=== PATIENT | female | born 2000 ===

== ENCOUNTER 2021-04-08 09:43 | Inpatient (IN) | payer SELFPAY ==
[2021-04-08] MEDS ORDERED: SODIUM CHLORIDE 0.9% 500 ML 500 ML IV NR (09:52)
--- NOTE | 2021-04-08 09:55 | Emergency Department Report ---
ED General Adult HPI - General Chief complaint: Seizure Stated complaint: SEIZURE Time Seen by Provider: 04/08/21 09:47 Source: patient, family, EMS (Verbal report received from emergency medical services. EMS documentation not available at time of chart dictation ), RN notes reviewed Mode of arrival: Stretcher Limitations: Altered Mental Status, Physical Limitation - History of Present Illness Initial comments: This patient is a 20-year-old female. She is not known to myself previously. She reportedly has a history of lupus, and she is currently maintained on hydroxychloroquine, and steroids. She was previously seen at [facility]. She is brought to the hospital today by emergency medical services with an EMS articulated complaint of new onset seizure and convulsion. EMS reports normal Accu-Chek in the field, normal vital signs in the field, with the exception of tachycardia. They report that the patient had a convulsive events, while laying down, without associated trauma, which lasted for a few seconds to a few minutes, they are not certain. They then gave the patient Versed, after second convulsive event, which terminated her convulsion. In the emergency room, initially, the patient is postictal, confused, moving 4 extremities purposefully. Her mental status improved. The patient now denies headache, neck pain, chest pain, abdominal pain, shortness of breath. She denies urinary symptoms. She endorses physical body pain, myalgias. She is COVID-19 vaccinated. She does endorse that a few weeks ago, she had left-sided weakness. This is also resolved at this time. The patient feels like she is back to her baseline. She further reports that she has not taken Tylenol recently that she is aware of. The patient furthermore states that she has not delivered her given in the past 6 weeks. -: Sudden Severity scale (0 -10): 0 Consistency: intermittent Improves with: medication (Versed in the field) Worsens with: none - Related Data Home Medications Medication Instructions Recorded Confirmed Last Taken Ascorbic Acid [Vitamin C] 500 mg PO DAILY 04/08/21 04/08/21 Unknown Gabapentin 100 mg PO QHS 04/08/21 04/08/21 Unknown Iron [Iron 18 MG TAB] 325 mg PO DAILY 04/08/21 04/08/21 Unknown Meclizine [Antivert] 25 mg PO TID PRN 04/08/21 04/08/21 Unknown Metoprolol Tartrate 25 mg PO BID 04/08/21 04/08/21 Unknown Omeprazole 20 mg PO DAILY 04/08/21 04/08/21 Unknown Ondansetron HCl [Zofran] 4 mg PO Q8HR PRN 04/08/21 04/08/21 Unknown Plaquenil 200 mg PO BID 04/08/21 04/08/21 Unknown amLODIPine 2.5 mg PO DAILY 04/08/21 04/08/21 Unknown predniSONE 10 mg PO DAILY 04/08/21 04/08/21 Unknown Allergies Allergy/AdvReac Type Severity Reaction Status Date / Time No Known Allergies Allergy Unverified 04/08/21 10:06 ED Review of Systems ROS: Stated complaint: SEIZURE Other details as noted in HPI Constitutional: other (Denies loss of taste and smell). denies: fever Eyes: denies: eye discharge Respiratory: denies: see HPI Cardiovascular: denies: chest pain Gastrointestinal: denies: abdominal pain Genitourinary: denies: dysuria Musculoskeletal: arthralgia, myalgia Neurological: weakness Hematological/Lymphatic: denies: easy bleeding ED Past Medical Hx - Medications Home Medications: Home Medications Medication Instructions Recorded Confirmed Last Taken Type Ascorbic Acid [Vitamin C] 500 mg PO DAILY 04/08/21 04/08/21 Unknown History Gabapentin 100 mg PO QHS 04/08/21 04/08/21 Unknown History Iron [Iron 18 MG TAB] 325 mg PO DAILY 04/08/21 04/08/21 Unknown History Meclizine [Antivert] 25 mg PO TID PRN 04/08/21 04/08/21 Unknown History Metoprolol Tartrate 25 mg PO BID 04/08/21 04/08/21 Unknown History Omeprazole 20 mg PO DAILY 04/08/21 04/08/21 Unknown History Ondansetron HCl [Zofran] 4 mg PO Q8HR PRN 04/08/21 04/08/21 Unknown History Plaquenil 200 mg PO BID 04/08/21 04/08/21 Unknown History amLODIPine 2.5 mg PO DAILY 04/08/21 04/08/21 Unknown History predniSONE 10 mg PO DAILY 04/08/21 04/08/21 Unknown History ED Physical Exam - General Limitations: No Limitations General appearance: alert, anxious - Head Head exam: Present: atraumatic, normocephalic - Eye Eye exam: Present: normal appearance, EOMI. Absent: nystagmus - ENT ENT exam: Present: normal exam, normal orophraynx, mucous membranes moist, normal external ear exam - Neck Neck exam: Present: normal inspection, full ROM. Absent: tenderness, meningismus - Respiratory Respiratory exam: Present: normal lung sounds bilaterally. Absent: respiratory distress, wheezes, rales, rhonchi, stridor, decreased breath sounds - Cardiovascular Cardiovascular Exam: Present: normal rhythm, tachycardia, normal heart sounds. Absent: bradycardia, irregular rhythm, systolic murmur, diastolic murmur, rubs, gallop - GI/Abdominal GI/Abdominal exam: Present: soft. Absent: distended, tenderness, guarding, rebound, rigid, pulsatile mass - Extremities Exam Extremities exam: Present: normal inspection, full ROM, other (2+ pulses noted in the bilateral upper and lower extremities. There is no palpable cord. negative Homans sign. Muscular compartments are soft. The pelvis is stable.). Absent: pedal edema, calf tenderness - Back Exam Back exam: Present: normal inspection, full ROM. Absent: tenderness, CVA t enderness (R), CVA tenderness (L), paraspinal tenderness, vertebral tenderness - Neurological Exam Neurological exam: Present: alert, oriented X3, normal gait, other (No facial droop. Tongue midline. Extraocular movements intact bilaterally. Facial sensation intact to light touch in V1, V2, V3 distribution bilaterally. 5 and a 5 strength in 4 extremities. Sensation intact to light touch in 4 extremities.). Absent: motor sensory deficit - Psychiatric Psychiatric exam: Present: normal affect, normal mood - Skin Skin exam: Present: warm, dry, intact, normal color. Absent: rash ED Course Vital Signs 04/08/21 04/08/21 04/08/21 09:44 09:57 10:01 Temperature Pulse Rate 122 H 116 H 115 H Respiratory 17 19 20 Rate Blood Pressure 132/94 Blood Pressure 142/96 [Left] O2 Sat by Pulse 97 99 99 Oximetry 04/08/21 04/08/21 04/08/21 10:03 10:15 10:31 Temperature 99.6 F Pulse Rate 118 H Respiratory 19 Rate Blood Pressure 132/94 132/94 Blood Pressure [Left] O2 Sat by Pulse 98 100 Oximetry 04/08/21 04/08/21 04/08/21 10:45 11:01 11:15 Temperature Pulse Rate 114 H 106 H 94 H Respiratory 16 16 18 Rate Blood Pressure 138/104 140/101 157/112 Blood Pressure [Left] O2 Sat by Pulse 98 100 100 Oximetry 04/08/21 04/08/21 04/08/21 11:31 11:48 12:01 Temperature Pulse Rate 91 H 108 H 91 H Respiratory 16 15 Rate Blood Pressure 148/107 148/107 159/113 Blood Pressure [Left] O2 Sat by Pulse 100 Oximetry 04/08/21 12:15 Temperature Pulse Rate 98 H Respiratory 12 Rate Blood Pressure 154/108 Blood Pressure [Left] O2 Sat by Pulse Oximetry - Reevaluation(s) Reevaluation #1: 04/08/21 12:33 Differential diagnosis, including but not limited to: Seizure, pneumonia, urinary tract infection, lupus, immune compromise TIA Assessment and plan: 20-year-old female, who was afebrile, with reassuring vital signs, afebrile rectally, with resolving tachycardia, who currently has a GCS of 15, with NIH score of 0, with new onset convulsive event x2, terminated with Versed, and report of left-sided hemiparesis, now resolved. Given improvement in mental status, lack of fever, nuchal rigidity, meningitis, encephalitis, lupus cerebritis very unlikely. Given GCS of 15, with NIH score of 0, subclinical status and/or status epilepticus unlikely. Given current examination, emergent CT angiogram head and neck not indicated. However, given young age, presence of lupus, new onset convulsive event, and articulated history of left-sided hemiparesis, now resolved, have discussed the patient's history, physical, laboratory studies and imaging studies with neurology on-call, Dr. Montesinos. Admission recommended for supportive care, urgent diagnostic work-up. Please see his specific recommendations. Leukocytosis is likely a stress reaction likely secondary to convulsive event. The patient is encephalopathic at this time. However, given her tachycardia, leukocytosis, bacteriuria with pyuria, we will load with fluids, ceftriaxone. Patient to be admitted to the care of the medical service under the hospital physician, Dr. Palmer. We will replete the patient's potassium. ED Medical Decision Making - Lab Data Result diagrams: 04/08/21 10:17 04/08/21 10:17 Vital Signs 04/08/21 04/08/21 04/08/21 09:44 09:57 10:01 Temperature Pulse Rate 122 H 116 H 115 H Respiratory 17 19 20 Rate Blood Pressure 132/94 Blood Pressure 142/96 [Left] O2 Sat by Pulse 97 99 99 Oximetry 04/08/21 04/08/21 04/08/21 10:03 10:15 10:31 Temperature 99.6 F Pulse Rate 118 H Respiratory 19 Rate Blood Pressure 132/94 132/94 Blood Pressure [Left] O2 Sat by Pulse 98 100 Oximetry 04/08/21 04/08/21 04/08/21 10:45 11:01 11:15 Temperature Pulse Rate 114 H 106 H 94 H Respiratory 16 16 18 Rate Blood Pressure 138/104 140/101 157/112 Blood Pressure [Left] O2 Sat by Pulse 98 100 100 Oximetry 04/08/21 04/08/21 04/08/21 11:31 11:48 12:01 Temperature Pulse Rate 91 H 108 H 91 H Respiratory 16 15 Rate Blood Pressure 148/107 148/107 159/113 Blood Pressure [Left] O2 Sat by Pulse 100 Oximetry 04/08/21 12:15 Temperature Pulse Rate 98 H Respiratory 12 Rate Blood Pressure 154/108 Blood Pressure [Left] O2 Sat by Pulse Oximetry Lab Results 04/08/21 04/08/21 04/08/21 Range/Units 10:17 10:17 10:17 WBC 19.6 H (4.5-11.0) K/mm3 RBC 4.49 (3.65-5.03) M/mm3 Hgb 10.4 (10.1-14.3) gm/dl Hct 33.0 (30.3-42.9) % MCV 74 L (79-97) fl MCH 23 L (28-32) pg MCHC 32 (30-34) % RDW 23.4 H (13.2-15.2) % Plt Count 197 (140-440) K/mm3 Lymph % (Auto) 5.3 L (13.4-35.0) % [place] % (Auto) 6.5 (0.0-7.3) % Eos % (Auto) 0.3 (0.0-4.3) % Baso % (Auto) 0.2 (0.0-1.8) % Lymph # (Auto) 1.1 L (1.2-5.4) K/mm3 [place] # (Auto) 1.3 H (0.0-0.8) K/mm3 Eos # (Auto) 0.1 (0.0-0.4) K/mm3 Baso # (Auto) 0.0 (0.0-0.1) K/mm3 Seg Neutrophils % 87.7 H (40.0-70.0) % Seg Neutrophils # 17.6 H (1.8-7.7) K/mm3 PT 13.3 (12.2-14.9) Sec. INR 0.91 (0.87-1.13) Sodium 134 L (137-145) mmol/L Potassium 2.5 L* (3.6-5.0) mmol/L Chloride 90.3 L (98-107) mmol/L Carbon Dioxide 25 (22-30) mmol/L Anion Gap 21 mmol/L BUN 15 (7-17) mg/dL Creatinine 0.5 L (0.6-1.2) mg/dL Estimated GFR > 60 ml/min BUN/Creatinine Ratio 30 % Glucose 99 (65-100) mg/dL Calcium 8.8 (8.4-10.2) mg/dL Magnesium (1.7-2.3) mg/dL Total Bilirubin 0.70 (0.1-1.2) mg/dL AST 26 (5-40) units/L ALT 38 (7-56) units/L Alkaline Phosphatase 135 H (35-129) units/L Total Protein 7.5 (6.3-8.2) g/dL Albumin 3.9 (3.9-5) g/dL Albumin/Globulin Ratio 1.1 % TSH (0.270-4.200) mlU/mL HCG, Quant (0-4) mIU/mL Urine Color (Yellow) Urine Turbidity (Clear) Urine pH (5.0-7.0) Ur Specific [place] (1.003-1.030) Urine Protein (Negative) mg/dL Urine Glucose (UA) (Negative) mg/dL Urine Ketones (Negative) mg/dL Urine Blood (Negative) Urine Nitrite (Negative) Urine Bilirubin (Negative) Urine Urobilinogen (<2.0) mg/dL Ur Leukocyte Esterase (Negative) Urine WBC (Auto) (0.0-6.0) /HPF Urine RBC (Auto) (0.0-6.0) /HPF U Epithel Cells (Auto) (0-13.0) /HPF Urine Bacteria (Auto) (Negative) /HPF Salicylates (2.8-20.0) mg/dL Urine Opiates Screen Urine Methadone Screen Acetaminophen (10.0-30.0) ug/mL Ur Barbiturates Screen Ur Phencyclidine Scrn Ur Amphetamines Screen Urine Cocaine Screen U Marijuana (THC) Screen Plasma/Serum Alcohol (0-0.07) % 04/08/21 04/08/21 04/08/21 Range/Units 10:17 10:17 10:17 WBC (4.5-11.0) K/mm3 RBC (3.65-5.03) M/mm3 Hgb (10.1-14.3) gm/dl Hct (30.3-42.9) % MCV (79-97) fl MCH (28-32) pg MCHC (30-34) % RDW (13.2-15.2) % Plt Count (140-440) K/mm3 Lymph % (Auto) (13.4-35.0) % [place] % (Auto) (0.0-7.3) % Eos % (Auto) (0.0-4.3) % Baso % (Auto) (0.0-1.8) % Lymph # (Auto) (1.2-5.4) K/mm3 [place] # (Auto) (0.0-0.8) K/mm3 Eos # (Auto) (0.0-0.4) K/mm3 Baso # (Auto) (0.0-0.1) K/mm3 Seg Neutrophils % (40.0-70.0) % Seg Neutrophils # (1.8-7.7) K/mm3 PT (12.2-14.9) Sec. INR (0.87-1.13) Sodium (137-145) mmol/L Potassium (3.6-5.0) mmol/L Chloride (98-107) mmol/L Carbon Dioxide (22-30) mmol/L Anion Gap mmol/L BUN (7-17) mg/dL Creatinine (0.6-1.2) mg/dL Estimated GFR ml/min BUN/Creatinine Ratio % Glucose (65-100) mg/dL Calcium (8.4-10.2) mg/dL Magnesium (1.7-2.3) mg/dL Total Bilirubin (0.1-1.2) mg/dL AST (5-40) units/L ALT (7-56) units/L Alkaline Phosphatase (35-129) units/L Total Protein (6.3-8.2) g/dL Albumin (3.9-5) g/dL Albumin/Globulin Ratio % TSH (0.270-4.200) mlU/mL HCG, Quant < 2 (0-4) mIU/mL Urine Color (Yellow) Urine Turbidity (Clear) Urine pH (5.0-7.0) Ur Specific [place] (1.003-1.030) Urine Protein (Negative) mg/dL Urine Glucose (UA) (Negative) mg/dL Urine Ketones (Negative) mg/dL Urine Blood (Negative) Urine Nitrite (Negative) Urine Bilirubin (Negative) Urine Urobilinogen (<2.0) mg/dL Ur Leukocyte Esterase (Negative) Urine WBC (Auto) (0.0-6.0) /HPF Urine RBC (Auto) (0.0-6.0) /HPF U Epithel Cells (Auto) (0-13.0) /HPF Urine Bacteria (Auto) (Negative) /HPF Salicylates < 0.3 L (2.8-20.0) mg/dL Urine Opiates Screen Urine Methadone Screen Acetaminophen 9.5 L (10.0-30.0) ug/mL Ur Barbiturates Screen Ur Phencyclidine Scrn Ur Amphetamines Screen Urine Cocaine Screen U Marijuana (THC) Screen Plasma/Serum Alcohol (0-0.07) % 04/08/21 04/08/21 04/08/21 Range/Units 10:17 10:17 10:47 WBC (4.5-11.0) K/mm3 RBC (3.65-5.03) M/mm3 Hgb (10.1-14.3) gm/dl Hct (30.3-42.9) % MCV (79-97) fl MCH (28-32) pg MCHC (30-34) % RDW (13.2-15.2) % Plt Count (140-440) K/mm3 Lymph % (Auto) (13.4-35.0) % [place] % (Auto) (0.0-7.3) % Eos % (Auto) (0.0-4.3) % Baso % (Auto) (0.0-1.8) % Lymph # (Auto) (1.2-5.4) K/mm3 [place] # (Auto) (0.0-0.8) K/mm3 Eos # (Auto) (0.0-0.4) K/mm3 Baso # (Auto) (0.0-0.1) K/mm3 Seg Neutrophils % (40.0-70.0) % Seg Neutrophils # (1.8-7.7) K/mm3 PT (12.2-14.9) Sec. INR (0.87-1.13) Sodium (137-145) mmol/L Potassium (3.6-5.0) mmol/L Chloride (98-107) mmol/L Carbon Dioxide (22-30) mmol/L Anion Gap mmol/L BUN (7-17) mg/dL Creatinine (0.6-1.2) mg/dL Estimated GFR ml/min BUN/Creatinine Ratio % Glucose (65-100) mg/dL Calcium (8.4-10.2) mg/dL Magnesium 2.20 (1.7-2.3) mg/dL Total Bilirubin (0.1-1.2) mg/dL AST (5-40) units/L ALT (7-56) units/L Alkaline Phosphatase (35-129) units/L Total Protein (6.3-8.2) g/dL Albumin (3.9-5) g/dL Albumin/Globulin Ratio % TSH 1.900 (0.270-4.200) mlU/mL HCG, Quant (0-4) mIU/mL Urine Color (Yellow) Urine Turbidity (Clear) Urine pH (5.0-7.0) Ur Specific [place] (1.003-1.030) Urine Protein (Negative) mg/dL Urine Glucose (UA) (Negative) mg/dL Urine Ketones (Negative) mg/dL Urine Blood (Negative) Urine Nitrite (Negative) Urine Bilirubin (Negative) Urine Urobilinogen (<2.0) mg/dL Ur Leukocyte Esterase (Negative) Urine WBC (Auto) (0.0-6.0) /HPF Urine RBC (Auto) (0.0-6.0) /HPF U Epithel Cells (Auto) (0-13.0) /HPF Urine Bacteria (Auto) (Negative) /HPF Salicylates (2.8-20.0) mg/dL Urine Opiates Screen Urine Methadone Screen Acetaminophen (10.0-30.0) ug/mL Ur Barbiturates Screen Ur Phencyclidine Scrn Ur Amphetamines Screen Urine Cocaine Screen U Marijuana (THC) Screen Plasma/Serum Alcohol < 0.01 (0-0.07) % 04/08/21 04/08/21 Range/Units 11:55 11:55 WBC (4.5-11.0) K/mm3 RBC (3.65-5.03) M/mm3 Hgb (10.1-14.3) gm/dl Hct (30.3-42.9) % MCV (79-97) fl MCH (28-32) pg MCHC (30-34) % RDW (13.2-15.2) % Plt Count (140-440) K/mm3 Lymph % (Auto) (13.4-35.0) % [place] % (Auto) (0.0-7.3) % Eos % (Auto) (0.0-4.3) % Baso % (Auto) (0.0-1.8) % Lymph # (Auto) (1.2-5.4) K/mm3 [place] # (Auto) (0.0-0.8) K/mm3 Eos # (Auto) (0.0-0.4) K/mm3 Baso # (Auto) (0.0-0.1) K/mm3 Seg Neutrophils % (40.0-70.0) % Seg Neutrophils # (1.8-7.7) K/mm3 PT (12.2-14.9) Sec. INR (0.87-1.13) Sodium (137-145) mmol/L Potassium (3.6-5.0) mmol/L Chloride (98-107) mmol/L Carbon Dioxide (22-30) mmol/L Anion Gap mmol/L BUN (7-17) mg/dL Creatinine (0.6-1.2) mg/dL Estimated GFR ml/min BUN/Creatinine Ratio % Glucose (65-100) mg/dL Calcium (8.4-10.2) mg/dL Magnesium (1.7-2.3) mg/dL Total Bilirubin (0.1-1.2) mg/dL AST (5-40) units/L ALT (7-56) units/L Alkaline Phosphatase (35-129) units/L Total Protein (6.3-8.2) g/dL Albumin (3.9-5) g/dL Albumin/Globulin Ratio % TSH (0.270-4.200) mlU/mL HCG, Quant (0-4) mIU/mL Urine Color Straw (Yellow) Urine Turbidity Clear (Clear) Urine pH 7.0 (5.0-7.0) Ur Specific [place] 1.005 (1.003-1.030) Urine Protein 30 mg/dl (Negative) mg/dL Urine Glucose (UA) Neg (Negative) mg/dL Urine Ketones Neg (Negative) mg/dL Urine Blood Sm (Negative) Urine Nitrite Neg (Negative) Urine Bilirubin Neg (Negative) Urine Urobilinogen < 2.0 (<2.0) mg/dL Ur Leukocyte Esterase Mod (Negative) Urine WBC (Auto) 10.0 H (0.0-6.0) /HPF Urine RBC (Auto) 3.0 (0.0-6.0) /HPF U Epithel Cells (Auto) 3.0 (0-13.0) /HPF Urine Bacteria (Auto) 1+ (Negative) /HPF Salicylates (2.8-20.0) mg/dL Urine Opiates Screen Negative Urine Methadone Screen Negative Acetaminophen (10.0-30.0) ug/mL Ur Barbiturates Screen Negative Ur Phencyclidine Scrn Negative Ur Amphetamines Screen Negative Urine Cocaine Screen Negative U Marijuana (THC) Screen Negative Plasma/Serum Alcohol (0-0.07) % - EKG Data -: EKG Interpreted by [place] EKG shows normal: sinus rhythm Rate: tachycardia - EKG Data When compared to previous EKG there are: previous EKG unavailable 04/08/21 12:30 The EKG is interpreted at 10: 24 Sinus rhythm, tachycardia, 123 bpm. Normal axis, normal P wave axis, QTC is 473 ms. There is motion artifact. This is an abnormal EKG. This is not a STEMI. - Radiology Data Radiology results: pending, report reviewed, image reviewed CT head/brain wo con INDICATION / CLINICAL INFORMATION: 20 years Female; Seizure. TECHNIQUE: Routine CT head without contrast. All CT scans at this location are performed using CT dose reduction for ALARA by means of automated exposure control. COMPARISON: None. FINDINGS: BRAIN / INTRACRANIAL CONTENTS: No acute hemorrhage, mass effect, midline shift, hydrocephalus, or acute, large territorial infarct. No signs of significant atrophy or chronic infarct. No significant white matter abnormality seen. CRANIOCERVICAL JUNCTION: No significant abnormality. ORBITS: No significant abnormality of visualized orbits. SINUSES / MASTOIDS: Visualized paranasal sinuses and mastoid air cells are essentially clear. ADDITIONAL FINDINGS: None. IMPRESSION: 1. No focal mass, hemorrhage, hydrocephalus, or acute, large territorial infarct. Signer Name: Taqueria Arzola MD, III Signed: 04/08/2021 9:15 AM Workstation Name: [id number] Critical care attestation.: If time is entered above; I have spent that time in minutes in the direct care of this critically ill patient, excluding procedure time. ED Disposition Clinical Impression: Seizure, Hypokalemia, History of lupus, SIRS (systemic inflammatory response syndrome), Bacteriuria with pyuria Disposition: ADMITTED INPATIENT Is pt being admited?: Yes Does the pt Need Aspirin: No Condition: Good Referrals: PRIMARY CAREMD [Primary Care Provider] - 3-5 Days
--- NOTE | 2021-04-08 10:20 | Cat Scan Report ---
CT head/brain wo con INDICATION / CLINICAL INFORMATION: 20 years Female; Seizure. TECHNIQUE: Routine CT head without contrast. All CT scans at this location are performed using CT dos e reduction for ALARA by means of automated exposure control. COMPARISON: None. FINDINGS: BRAIN / INTRACRANIAL CONTENTS: No acute hemorrhage, mass effect, midline shift, hydrocephalus, or acu te, large territorial infarct. No signs of significant atrophy or chronic infarct. No significant whi te matter abnormality seen. CRANIOCERVICAL JUNCTION: No significant abnormality. ORBITS: No significant abnormality of visualized orbits. SINUSES / MASTOIDS: Visualized paranasal sinuses and mastoid air cells are essentially clear. ADDITIONAL FINDINGS: None. IMPRESSION: 1. No focal mass, hemorrhage, hydrocephalus, or acute, large territorial infarct. Signer Name: Taqueria Arzola MD, III Signed: 04/08/2021 10:15 AM Workstation Name: [id number]
--- NOTE | 2021-04-08 10:23 | Emergency Department Report ---
ED Neuro Deficit HPI - General Chief Complaint: Seizure Stated Complaint: SEIZURE Time Seen by Provider: 04/08/21 09:47 Source: family, EMS Mode of arrival: Wheelchair Limitations: Other - History of Present Illness Initial Comments: [facility] Consult Note # Demographics Consult Type: General Neurology Patient Location: Emergency Room First Name: Chantell Last Name: Jd Date of : 2000 Age: 20 Gender: Female Facility: [facility] Time of Initial Page (Eastern Time): 04/08/2021, 09:55 Time of Return Call (Eastern Time): 04/08/2021, 09:56 Phone Only Consult: Called back to requested number, with Dr. Shook, the ED physician, to discuss the patient's presentation & evaluation options. The patient reportedly was transported by EMS after convulsive episodes x2 this morning, first life episodes. She was given Versed in the field, with post-ictal confusion reported. Currently she was moving extremities x4. Left intermittent episodes of renny-body paralysis also reported over the last few weeks, & he reported possible history of lupus. Agree with admission for further diagnostic work-up & evaluation, including brain MRI with & without contrast, CTA head & neck, EEG (continuous if patient does not return to her cognitive baseline, or has further convulsive events), & lumbar puncture if febrile without identified infectious source. If confusion persists, low clinical threshold to manage for status epilepticus with continuous EEG monitoring. The ED physician was encouraged to call back for any further questions, or with any clinical changes in the patient's neurological status. # HPI Chief Complaint: seizure # Exam Vitals: vital signs reviewed 99.6 SBP: 132 DBP: 94 - Related Data Allergies/Adverse Reactions: Allergies Allergy/AdvReac Type Severity Reaction Status Date / Time No Known Allergies Allergy Unverified 04/08/21 10:06 ED Review of Systems ROS: Stated complaint: SEIZURE Other details as noted in HPI ED Past Medical Hx - Past Medical History Hx Hypertension: Yes Hx Renal Disease: Yes Hx Seizures: Yes Additional medical history: Lupus - Surgical History Past Surgical History?: Yes Additional Surgical History: tonsilectomy ED Neuro Physical Exam - General Limitations: Other Suspected Stroke: No ED Course Vital Signs 04/08/21 04/08/21 04/08/21 09:44 09:57 10:01 Temperature Pulse Rate 122 H 116 H 115 H Respiratory 17 19 20 Rate Blood Pressure 132/94 Blood Pressure 142/96 [Left] O2 Sat by Pulse 97 99 99 Oximetry 04/08/21 10:03 Temperature 99.6 F Pulse Rate Respiratory Rate Blood Pressure Blood Pressure [Left] O2 Sat by Pulse Oximetry Critical care attestation.: If time is entered above; I have spent that time in minutes in the direct care of this critically ill patient, excluding procedure time. ED Disposition Clinical Impression: Seizure Disposition: 09 ADMITTED INPATIENT Is pt being admited?: Yes Condition: Stable
[2021-04-08] MEDS ORDERED: levETIRAcetam 1000 MG/NS 0.75% 1,000 MG/100 ML BAG IV ONE (10:30)
[2021-04-08 10:42] LABS: Hemoglobin 10.4 gm/dl (10.1-14.3); Mean Corpuscular HGB Conc 32 % (30-34); Mean Corpuscular Volume 74 fl (79-97); Platelet Count 197 K/mm3 (140-440); Red Blood Count 4.49 M/mm3 (3.65-5.03)
[2021-04-08 10:54] LABS: INR 0.91 (0.87-1.13)
[2021-04-08 11:03] LABS: Red Cell Distribution Width 23.4 % (13.2-15.2)
[2021-04-08 11:05] LABS: Alanine Aminotransferase 38 units/L (7-56); Albumin 3.9 g/dL (3.9-5); BUN/Creatinine Ratio 30; Blood Urea Nitrogen 15 mg/dL (7-17); Calcium 8.8 mg/dL (8.4-10.2); Hemolysis Index 3
[2021-04-08 11:10] LABS: Basophils % (Auto) 0.2 % (0.0-1.8); Eosinophils # (Auto) 0.1 K/mm3 (0.0-0.4); Eosinophils % (Auto) 0.3 % (0.0-4.3); Lymphocytes # (Auto) 1.1 K/mm3 (1.2-5.4); Lymphocytes % (Auto) 5.3 % (13.4-35.0); Monocytes # (Auto) 1.3 K/mm3 (0.0-0.8); Monocytes % (Auto) 6.5 % (0.0-7.3)
[2021-04-08] MEDS ORDERED: POTASSIUM CHLORIDE ER 20 MEQ TAB PO ONE (11:43)
[2021-04-08 12:20] LABS: Bacteria,Urine 1+ /HPF (Negative); Bilirubin,Urine NEG (Negative); Blood,Urine SM (Negative); Color,Urine Straw (Yellow); Urobilinogen,Urine < 2.0 mg/dL (<2.0)
[2021-04-08] MEDS: POTASSIUM CHLORIDE 10 MEQ 10 MEQ/100 ML BAG IV SCH ×4 (12:21→18:36)
[2021-04-08 12:25] LABS: Amphetamine Screen,Urine Negative; Cannabinoid Screen,Urine Negative; Cocaine Screen,Urine Negative; Methadone Screen,Urine Negative; Opiate Screen,Urine Negative
[2021-04-08] MEDS ORDERED: cefTRIAXone/NS 1 GM/50 ML 1 GM/50 ML BAG IV ONE (12:29)
[2021-04-08 12:44] LABS: Benzodiazepines Screen,Urine Positive
--- NOTE | 2021-04-08 13:19 | XRay Report ---
CHEST 1 VIEW 04/08/2021 12:34 PM INDICATION / CLINICAL INFORMATION: New onset seizures, sepsis. COMPARISON: None available. FINDINGS: SUPPORT DEVICES: None. HEART / MEDIASTINUM: No significant abnormality. LUNGS / PLEURA: No significant pulmonary or pleural abnormality. No pneumothorax. ADDITIONAL FINDINGS: No significant additional findings. IMPRESSION: 1. No acute findings. Signer Name: Raul Montalvo MD Signed: 04/08/2021 1:15 PM Workstation Name: [id number]
[2021-04-08] MEDS ORDERED: SODIUM CHLORIDE 0.9% 1000 ML IV SOLN IV ONE (13:22)
[2021-04-08] MEDS ORDERED: oxyCODONE /ACETAMINOPHEN 5-325MG TAB PO PRN (13:22)
[2021-04-08] MEDS ORDERED: HYDROmorphone 1 MG/1 ML INJ IV PRN ×2 (13:22)
[2021-04-08] MEDS ORDERED: ACETAMINOPHEN 325 MG TAB PO PRN ×2 (13:22)
[2021-04-08] MEDS ORDERED: ONDANSETRON 4 MG/2 ML INJ IV PRN (13:22)
[2021-04-08] MEDS ORDERED: ALBUTEROL 2.5 MG/3 ML NEBU IH PRN (13:22)
[2021-04-08] MEDS ORDERED: MECLIZINE 25 MG TAB PO PRN (13:25)
--- NOTE | 2021-04-08 13:30 | History and Physical Report ---
History of Present Illness Chief complaint: I feel weak History of present illness: 20 YO Female with SLE, HTN, Anemia Chronic Disease, Vertigo presents to ED for evaluation. Patient reports "I feel weak". Patient has diminished cognition with concomitant lethargy and is unable to provide detailed history. Patient history taken from EMS staff ED staff, as well as patient family members were made available by telephone for interview. As per family the patient was found to be confused and weak this morning. EMS was notified and upon arrival the patient was found to be in distress and exhibited seizure-like activity. Patient treated with benzodiazepine therapy and subsequent transported to [facility] for further care and evaluation of the aforementioned symptoms. The patient was seen and evaluated in the emergency department. All lab and imaging studies reviewed. Patient found to have new onset seizure activity, urinary tract infection complicated by sepsis, hypokalemia. Patient admitted to medical floor and initiated on sepsis protocol as well as initiated on antiepileptic therapy. Patient denies fever, chills, chest pain, palpitation, productive cough, skin rash, recent ill contacts, known exposure to COVID-19. No prior admission for review. All medication listed at time of admission has been reconciled. Patient fully vaccinated against COVID-19. Past History Past Medical History: anemia, hypertension, seizures Past Surgical History: No surgical history, Other (Reviewed) Social history: single. denies: smoking, alcohol abuse, prescription drug abuse Family history: hypertension Medications and Allergies Allergies Allergy/AdvReac Type Severity Reaction Status Date / Time No Known Allergies Allergy Unverified 04/08/21 10:06 Home Medications Medication Instructions Recorded Confirmed Last Taken Type Ascorbic Acid [Vitamin C] 500 mg PO DAILY 04/08/21 04/08/21 Unknown History Gabapentin 100 mg PO QHS 04/08/21 04/08/21 Unknown History Iron [Iron 18 MG TAB] 325 mg PO DAILY 04/08/21 04/08/21 Unknown History Meclizine [Antivert] 25 mg PO TID PRN 04/08/21 04/08/21 Unknown History Metoprolol Tartrate 25 mg PO BID 04/08/21 04/08/21 Unknown History Omeprazole 20 mg PO DAILY 04/08/21 04/08/21 Unknown History Ondansetron HCl [Zofran] 4 mg PO Q8HR PRN 04/08/21 04/08/21 Unknown History Plaquenil 200 mg PO BID 04/08/21 04/08/21 Unknown History amLODIPine 2.5 mg PO DAILY 04/08/21 04/08/21 Unknown History predniSONE 10 mg PO DAILY 04/08/21 04/08/21 Unknown History Active Meds: Active Medications Acetaminophen (Acetaminophen 325 Mg Tab) 650 mg PO Q4H PRN PRN Reason: Pain MILD(1-3)/Fever >100.5/GUADALUPE Acetaminophen (Acetaminophen 325 Mg Tab) 650 mg PO Q6H PRN PRN Reason: Pain, Mild (1-3) Albuterol (Albuterol 2.5 Mg/3 Ml Nebu) 2.5 mg IH Q4HRT PRN PRN Reason: Shortness Of Breath Amlodipine Besylate (Amlodipine 5 Mg Tab) 2.5 mg PO DAILY LOLITA Ascorbic Acid (Ascorbic Acid 500 Mg Tab) 500 mg PO DAILY LOLITA Gabapentin (Gabapentin 100 Mg Cap) 100 mg PO QHS LOLITA Hydromorphone HCl (Hydromorphone 1 Mg/1 Ml Inj) 0.25 mg IV Q4H PRN PRN Reason: Pain, Moderate (4-6) Hydromorphone HCl (Hydromorphone 1 Mg/1 Ml Inj) 0.5 mg IV Q23H PRN PRN Reason: Pain , Severe (7-10) Sodium Chloride (Nacl 0.9% 500 Ml) 500 mls @ 999 mls/hr IV BOLUS NR Stop: 04/08/21 20:00 Last Admin: 04/08/21 10:49 Dose: 999 mls/hr Documented by: Potassium Chloride (Kcl 10meq/100ml) 10 meq in 100 mls @ 100 mls/hr IV Q1H LOLITA Stop: 04/08/21 15:59 Last Admin: 04/08/21 12:21 Dose: 100 mls/hr Documented by: Cefepime HCl (Cefepime/Ns 2 Gm/100 Ml) 2 gm in 100 mls @ 200 mls/hr IV Q12H [facility]; Protocol Meclizine HCl (Meclizine 25 Mg Tab) 25 mg PO TID PRN PRN Reason: Vertigo Miscellaneous Medication (Iron [Iron 18 Mg Tab]) 325 mg PO DAILY [facility] Miscellaneous Medication (Metoprolol Tartrate [Metoprolol Tartrate]) 25 mg PO BID LOLITA Miscellaneous Medication (Omeprazole [Omeprazole]) 20 mg PO DAILY [facility] Ondansetron HCl (Ondansetron 4 Mg/2 Ml Inj) 4 mg IV Q8H PRN PRN Reason: Nausea And Vomiting Oxycodone/Acetaminophen (Oxycodone /Acetaminophen 5-325mg Tab) 1 tab PO Q16H PRN PRN Reason: Pain, Moderate (4-6) Sodium Chloride (Sodium Chloride 0.9% 10 Ml Flush Syringe) 10 ml IV BID LOLITA Sodium Chloride (Sodium Chloride 0.9% 10 Ml Flush Syringe) 10 ml IV PRN PRN PRN Reason: LINE FLUSH Sodium Chloride (Sodium Chloride 0.9% 1000 Ml Iv Soln) 1,630 ml 30 ml/kg (1630 ml) IV ONCE ONE Stop: 04/08/21 13:23 Review of Systems Constitutional: no weight loss, no weight gain, no fever, no chills Ears, nose, mouth and throat: no ear pain, no ear discharge, no tinnitis, no nose pain Breasts: no change in shape, no swelling, no mass Cardiovascular: no chest pain, no orthopnea Respiratory: no cough, no cough with sputum, no hemoptysis Gastrointestinal: no abdominal pain, no diarrhea, no hematemesis Genitourinary Female: no pelvic pain, no flank pain, no dysuria Rectal: no pain, no incontinence, no bleeding Musculoskeletal: no neck stiffness, no neck pain, no arm numbness/tingling, no shooting leg pain, no leg numbness/tingling Integumentary: no rash, no redness, no sores, no boils Neurological: no head injury, no paralysis, no parathesias, no tingling Psychiatric: no anxiety, no memory loss, no sleep disturbances, no change in appetite, no change in libido Endocrine: no cold intolerance, no polydipsia, no nocturia, no flushing Allergic/Immunologic: no urticaria, no allergic rhinitis, no wheezing Exam - Constitutional Vitals: Temp Pulse Resp BP Pulse Ox 99.6 F 98 H 12 154/108 100 04/08/21 10:03 04/08/21 12:15 04/08/21 12:15 04/08/21 12:15 04/08/21 11:31 General appearance: Present: mild distress - EENT Eyes: Present: PERRL ENT: hearing intact, clear oral mucosa - Neck Neck: Present: supple, normal ROM - Respiratory Respiratory effort: normal Respiratory: bilateral: CTA - Cardiovascular Heart Sounds: Present: S1 & S2. Absent: rub, click - Extremities Extremities: pulses symmetrical, No edema Peripheral Pulses: abnormal (Capillary refill greater than 3.5 seconds) - Abdominal General gastrointestinal: Present: soft, non-tender, non-distended, normal bowel sounds Female genitourinary: Present: normal - Integumentary Integumentary: Present: clear, warm, dry - Musculoskeletal Musculoskeletal: generalized weakness - Psychiatric Psychiatric: cooperative - Neurologic Neurologic: CNII-XII intact, moves all extremities Results - Labs CBC & Chem 7: 04/08/21 10:17 04/08/21 10:17 Labs: Abnormal lab results 04/08/21 04/08/21 04/08/21 Range/Units 10:17 10:17 10:17 WBC 19.6 H (4.5-11.0) K/mm3 MCV 74 L (79-97) fl MCH 23 L (28-32) pg RDW 23.4 H (13.2-15.2) % Lymph % (Auto) 5.3 L (13.4-35.0) % Lymph # (Auto) 1.1 L (1.2-5.4) K/mm3 [place]inson # (Auto) 1.3 H (0.0-0.8) K/mm3 Seg Neutrophils % 87.7 H (40.0-70.0) % Seg Neutrophils # 17.6 H (1.8-7.7) K/mm3 Sodium 134 L (137-145) mmol/L Potassium 2.5 L* (3.6-5.0) mmol/L Chloride 90.3 L (98-107) mmol/L Creatinine 0.5 L (0.6-1.2) mg/dL Alkaline Phosphatase 135 H (35-129) units/L Urine WBC (Auto) (0.0-6.0) /HPF Salicylates < 0.3 L (2.8-20.0) mg/dL Acetaminophen (10.0-30.0) ug/mL 04/08/21 04/08/21 Range/Units 10:17 11:55 WBC (4.5-11.0) K/mm3 MCV (79-97) fl MCH (28-32) pg RDW (13.2-15.2) % Lymph % (Auto) (13.4-35.0) % Lymph # (Auto) (1.2-5.4) K/mm3 [place]inson # (Auto) (0.0-0.8) K/mm3 Seg Neutrophils % (40.0-70.0) % Seg Neutrophils # (1.8-7.7) K/mm3 Sodium (137-145) mmol/L Potassium (3.6-5.0) mmol/L Chloride (98-107) mmol/L Creatinine (0.6-1.2) mg/dL Alkaline Phosphatase (35-129) units/L Urine WBC (Auto) 10.0 H (0.0-6.0) /HPF Salicylates (2.8-20.0) mg/dL Acetaminophen 9.5 L (10.0-30.0) ug/mL Assessment and Plan - Patient Problems (1) Sepsis Current Visit: Yes Status: Acute Plan to address problem: Sepsis protocol: CBC, CMP, chest x-ray, urinalysis, IV fluid resuscitation therapy, IV antibiotic therapy, blood culture, maintain mean arterial pressure greater than or equal to 65, serial lactic acid level. (2) UTI (urinary tract infection) Current Visit: Yes Status: Acute Qualifiers: Encounter type: initial encounter Plan to address problem: Urinalysis, IV antibiotic therapy. (3) SLE (systemic lupus erythematosus related syndrome) Current Visit: Yes Status: Acute Plan to address problem: Continue Plaquenil, supportive care, outpatient rheumatology follow-up. (4) New onset seizure Current Visit: Yes Status: Acute Plan to address problem: Keppra therapy. Neuro check, seizure precautions, aspiration precautions, supportive care. (5) DVT prophylaxis Current Visit: Yes Status: Acute Plan to address problem: SCDs bilateral lower extremities while in bed (6) Advance care planning Current Visit: Yes Status: Acute Plan to address problem: Disease education conducted, care plan discussed, diagnoses discussed, prognosis discussed, patient family acknowledges understanding and agreement with care plan, +30 minutes.
[2021-04-08 14:11] LABS: Band Neutrophils # (Manual) 0.6 K/mm3; Total Cells Counted 100
[2021-04-08 14:12] LABS: Anisocytosis 2+; Hypochromasia 1+; Platelet Estimate Consistent w Auto
[2021-04-08] MEDS: CEFEPIME/NS 2 GM/100 ML 2 GM/100 ML BAG IV SCH (14:40)
[2021-04-08] MEDS: METOPROLOL TARTRATE 25 MG TAB PO SCH (21:48)
[2021-04-08] MEDS: GABAPENTIN 100 MG CAP PO SCH (21:48)
[2021-04-08] MEDS: levETIRAcetam 500 MG TAB PO SCH (21:48)
[2021-04-08] MEDS: HYDROXYCHLOROQUINE 200 MG TAB PO SCH (21:48)
[2021-04-08] MEDS ORDERED: METOPROLOL TARTRATE 37.5 MG PO SCH (22:00)
[2021-04-08] MEDS ORDERED: PLAQUENIL 200 MG PO SCH (22:00)
[2021-04-09] MEDS: CEFEPIME/NS 2 GM/100 ML 2 GM/100 ML BAG IV SCH (03:15)
[2021-04-09] MEDS ORDERED: NON-FORMULARY EACH (Iron [Iron 18 Mg Tab] 18 MG Tablet) PO SCH (10:00)
[2021-04-09] MEDS ORDERED: NON-FORMULARY EACH (Omeprazole [Omeprazole] 20 MG Capsule.Dr) PO SCH (10:00)
[2021-04-09] MEDS ORDERED: PREDNISONE 10 MG PO SCH (10:00)
[2021-04-09] MEDS ORDERED: amLODIPine 5 MG TAB PO SCH ×3 (10:00→11:00)
[2021-04-09 10:16] LABS: Hematocrit 32.5 % (30.3-42.9); Hemoglobin 10.2 gm/dl (10.1-14.3); Mean Corpuscular HGB Conc 31 % (30-34); Mean Corpuscular Volume 76 fl (79-97); Platelet Count 196 K/mm3 (140-440); Red Blood Count 4.29 M/mm3 (3.65-5.03)
[2021-04-09 10:26] LABS: Red Cell Distribution Width 24.2 % (13.2-15.2)
[2021-04-09 10:32] LABS: BUN/Creatinine Ratio 25; Blood Urea Nitrogen 10 mg/dL (7-17); Calcium 8.6 mg/dL (8.4-10.2); Hemolysis Index 6
[2021-04-09] MEDS: ASCORBIC ACID 500 MG TAB PO SCH (10:48)
[2021-04-09] MEDS: HYDROXYCHLOROQUINE 200 MG TAB PO SCH ×2 (10:48→21:27)
[2021-04-09] MEDS: predniSONE 10 MG TAB PO SCH (10:48)
[2021-04-09] MEDS: PANTOPRAZOLE 20 MG TAB PO SCH (10:48)
[2021-04-09] MEDS: FERROUS SULFATE 325 MG TAB PO SCH (10:48)
[2021-04-09] MEDS: levETIRAcetam 500 MG TAB PO SCH ×2 (10:48→21:27)
[2021-04-09] MEDS: METOPROLOL TARTRATE 25 MG TAB PO SCH ×2 (10:48→21:27)
--- NOTE | 2021-04-09 11:39 | Progress Note ---
Assessment and Plan Assessment and plan: #New onset seizure -CT head negative for acute findings -Patient without seizure-like activity since admission -UDS positive for benzodiazepine, post administration -Continue Keppra 500 mg twice daily -Neurology consulted, recs appreciated #Leukocytosis -High blood cell count 19.6, improved to 10.3 -UA: + Bacteria; patient denies urinary complaints; urine culture pending -Afebrile, blood cultures collected -Received 1 dose of Rocephin in ED; received 1 dose of cefepime -Low suspicion for infection will discontinue antibiotics #Hypokalemia -K 2.5 -> 2.7 -will continue to replete and monitor #Hypertension-uncontrolled -Recently started on antihypertensives during hospitalization 2 weeks ago -will increase home amlodipine dose to 10 mg, continue metoprolol 25 mg twice daily -will continue to monitor #Microcytic anemia -History of anemia secondary to chronic disease -Continue iron supplementation -will transfuse for hemoglobin less than 7 #History of SLE -Continue Plaquenil and prednisone at home doses Disposition Plan: Home Total Time Spent with Patient (Minutes): 20 minutes History Interval history: No acute events overnight. No further seizure activity observed. Patient reports feeling "okay". Currently without any complaints at this time. Hospitalist Physical - Physical exam Narrative exam: GENERAL: Thin young woman. Sitting up in bed, in no acute distress. CHEST/LUNGS: CTAB on nasal cannula at 2 L/min HEART/CARDIOVASCULAR: Tachycardic. No murmur, rubs or gallops appreciated. ABDOMEN: +BS. NT/ND. SKIN: No rashes noted. NEURO: No focal motor deficit. Follows all commands. EXTREMITIES: No cyanosis, clubbing or edema. PSYCH: Cooperative. - Constitutional Vitals: Temp Pulse Resp BP Pulse Ox 98.5 F 107 H 18 156/109 97 04/09/21 05:37 04/09/21 05:37 04/09/21 05:37 04/09/21 05:37 04/09/21 07:43 General appearance: Present: mild distress Results - Labs CBC & Chem 7: 04/09/21 09:30 04/09/21 09:30 Labs: Laboratory Last Values WBC 10.3 K/mm3 (4.5-11.0) 04/09/21 09:30 RBC 4.29 M/mm3 (3.65-5.03) 04/09/21 09:30 Hgb 10.2 gm/dl (10.1-14.3) 04/09/21 09:30 Hct 32.5 % (30.3-42.9) 04/09/21 09:30 MCV 76 fl (79-97) L 04/09/21 09:30 MCH 24 pg (28-32) L 04/09/21 09:30 MCHC 31 % (30-34) 04/09/21 09:30 RDW 24.2 % (13.2-15.2) H 04/09/21 09:30 Plt Count 196 K/mm3 (140-440) 04/09/21 09:30 Lymph % (Auto) 5.3 % (13.4-35.0) L 04/08/21 10:17 Blanco % (Auto) 6.5 % (0.0-7.3) 04/08/21 10:17 Eos % (Auto) 0.3 % (0.0-4.3) 04/08/21 10:17 Baso % (Auto) 0.2 % (0.0-1.8) 04/08/21 10:17 Lymph # (Auto) 1.1 K/mm3 (1.2-5.4) L 04/08/21 10:17 Blanco # (Auto) 1.3 K/mm3 (0.0-0.8) H 04/08/21 10:17 Eos # (Auto) 0.1 K/mm3 (0.0-0.4) 04/08/21 10:17 Baso # (Auto) 0.0 K/mm3 (0.0-0.1) 04/08/21 10:17 Add Manual Diff Complete 04/08/21 10:17 Total Counted 100 04/08/21 10:17 Seg Neutrophils % 87.7 % (40.0-70.0) H 04/08/21 10:17 Seg Neuts % (Manual) 86.0 % (40.0-70.0) H 04/08/21 10:17 Band Neutrophils % 3.0 % 04/08/21 10:17 Lymphocytes % (Manual) 3.0 % (13.4-35.0) L 04/08/21 10:17 Monocytes % (Manual) 8.0 % (0.0-7.3) H 04/08/21 10:17 Nucleated RBC % Not Reportable 04/08/21 10:17 Seg Neutrophils # 17.6 K/mm3 (1.8-7.7) H 04/08/21 10:17 Seg Neutrophils # Man 16.9 K/mm3 (1.8-7.7) H 04/08/21 10:17 Band Neutrophils # 0.6 K/mm3 04/08/21 10:17 Lymphocytes # (Manual) 0.6 K/mm3 (1.2-5.4) L 04/08/21 10:17 Abs React Lymphs (Man) 0.0 K/mm3 04/08/21 10:17 Monocytes # (Manual) 1.6 K/mm3 (0.0-0.8) H 04/08/21 10:17 Eosinophils # (Manual) 0.0 K/mm3 (0.0-0.4) 04/08/21 10:17 Basophils # (Manual) 0.0 K/mm3 (0.0-0.1) 04/08/21 10:17 Metamyelocytes # 0.0 K/mm3 04/08/21 10:17 Myelocytes # 0.0 K/mm3 04/08/21 10:17 Promyelocytes # 0.0 K/mm3 04/08/21 10:17 Blast Cells # 0.0 K/mm3 04/08/21 10:17 WBC Morphology Not Reportable 04/08/21 10:17 Hypersegmented Neuts Not Reportable 04/08/21 10:17 Hyposegmented Neuts Not Reportable 04/08/21 10:17 Hypogranular Neuts Not Reportable 04/08/21 10:17 Smudge Cells Not Reportable 04/08/21 10:17 Toxic Granulation Not Reportable 04/08/21 10:17 Toxic Vacuolation Not Reportable 04/08/21 10:17 Dohle Bodies Not Reportable 04/08/21 10:17 Pelger-Huet Anomaly Not Reportable 04/08/21 10:17 Jessa Rods Not Reportable 04/08/21 10:17 Platelet Estimate Consistent w auto 04/08/21 10:17 Clumped Platelets Not Reportable 04/08/21 10:17 Plt Clumps, EDTA Not Reportable 04/08/21 10:17 Large Platelets Not Reportable 04/08/21 10:17 Giant Platelets Not Reportable 04/08/21 10:17 Platelet Satelliting Not Reportable 04/08/21 10:17 Plt Morphology Comment Not Reportable 04/08/21 10:17 RBC Morphology Not Reportable 04/08/21 10:17 Dimorphic RBCs Not Reportable 04/08/21 10:17 Polychromasia Not Reportable 04/08/21 10:17 Hypochromasia 1+ 04/08/21 10:17 Poikilocytosis Not Reportable 04/08/21 10:17 Anisocytosis 2+ 04/08/21 10:17 Microcytosis 1+ 04/08/21 10:17 Macrocytosis Not Reportable 04/08/21 10:17 Spherocytes Not Reportable 04/08/21 10:17 Pappenheimer Bodies Not Reportable 04/08/21 10:17 Sickle Cells Not Reportable 04/08/21 10:17 Target Cells Not Reportable 04/08/21 10:17 Tear Drop Cells Not Reportable 04/08/21 10:17 Ovalocytes Not Reportable 04/08/21 10:17 Helmet Cells Not Reportable 04/08/21 10:17 Mancilla-Harrod Bodies Not Reportable 04/08/21 10:17 Dickerson Rings Not Reportable 04/08/21 10:17 Erath Cells Not Reportable 04/08/21 10:17 Bite Cells Not Reportable 04/08/21 10:17 Crenated Cell Not Reportable 04/08/21 10:17 Elliptocytes Not Reportable 04/08/21 10:17 Acanthocytes (Spur) Not Reportable 04/08/21 10:17 Rouleaux Not Reportable 04/08/21 10:17 Hemoglobin C Crystals Not Reportable 04/08/21 10:17 Schistocytes Not Reportable 04/08/21 10:17 Malaria parasites Not Reportable 04/08/21 10:17 Dante Bodies Not Reportable 04/08/21 10:17 Hem Pathologist Commnt No 04/08/21 10:17 PT 13.3 Sec. (12.2-14.9) 04/08/21 10:17 INR 0.91 (0.87-1.13) 04/08/21 10:17 Sodium 137 mmol/L (137-145) 04/09/21 09:30 Potassium 2.7 mmol/L (3.6-5.0) L* 04/09/21 09:30 Chloride 99.2 mmol/L (98-107) 04/09/21 09:30 Carbon Dioxide 21 mmol/L (22-30) L 04/09/21 09:30 Anion Gap 20 mmol/L 04/09/21 09:30 BUN 10 mg/dL (7-17) 04/09/21 09:30 Creatinine 0.4 mg/dL (0.6-1.2) L 04/09/21 09:30 Estimated GFR > 60 ml/min 04/09/21 09:30 BUN/Creatinine Ratio 25 % 04/09/21 09:30 Glucose 125 mg/dL (65-100) H 04/09/21 09:30 Lactic Acid 1.00 mmol/L (0.7-2.0) 04/09/21 05:43 Calcium 8.6 mg/dL (8.4-10.2) 04/09/21 09:30 Magnesium 2.20 mg/dL (1.7-2.3) 04/08/21 10:47 Total Bilirubin 0.70 mg/dL (0.1-1.2) 04/08/21 10:17 AST 26 units/L (5-40) 04/08/21 10:17 ALT 38 units/L (7-56) 04/08/21 10:17 Alkaline Phosphatase 135 units/L (35-129) H 04/08/21 10:17 Total Protein 7.5 g/dL (6.3-8.2) 04/08/21 10:17 Albumin 3.9 g/dL (3.9-5) 04/08/21 10:17 Albumin/Globulin Ratio 1.1 % 04/08/21 10:17 TSH 1.900 mlU/mL (0.270-4.200) 04/08/21 10:17 HCG, Quant < 2 mIU/mL (0-4) 04/08/21 10:17 Urine Color Straw (Yellow) 04/08/21 11:55 Urine Turbidity Clear (Clear) 04/08/21 11:55 Urine pH 7.0 (5.0-7.0) 04/08/21 11:55 Ur Specific [place] 1.005 (1.003-1.030) 04/08/21 11:55 Urine Protein 30 mg/dl mg/dL (Negative) 04/08/21 11:55 Urine Glucose (UA) Neg mg/dL (Negative) 04/08/21 11:55 Urine Ketones Neg mg/dL (Negative) 04/08/21 11:55 Urine Blood Sm (Negative) 04/08/21 11:55 Urine Nitrite Neg (Negative) 04/08/21 11:55 Urine Bilirubin Neg (Negative) 04/08/21 11:55 Urine Urobilinogen < 2.0 mg/dL (<2.0) 04/08/21 11:55 Ur Leukocyte Esterase Mod (Negative) 04/08/21 11:55 Urine WBC (Auto) 10.0 /HPF (0.0-6.0) H 04/08/21 11:55 Urine RBC (Auto) 3.0 /HPF (0.0-6.0) 04/08/21 11:55 U Epithel Cells (Auto) 3.0 /HPF (0-13.0) 04/08/21 11:55 Urine Bacteria (Auto) 1+ /HPF (Negative) 04/08/21 11:55 Nasal Screen MRSA (PCR) Negative (Negative) 04/09/21 16:25 Salicylates < 0.3 mg/dL (2.8-20.0) L 04/08/21 10:17 Urine Opiates Screen Negative 04/08/21 11:55 Urine Methadone Screen Negative 04/08/21 11:55 Acetaminophen 9.5 ug/mL (10.0-30.0) L 04/08/21 10:17 Ur Barbiturates Screen Negative 04/08/21 11:55 Ur Phencyclidine Scrn Negative 04/08/21 11:55 Ur Amphetamines Screen Negative 04/08/21 11:55 U Benzodiazepines Scrn Positive 04/08/21 11:55 Urine Cocaine Screen Negative 04/08/21 11:55 U Marijuana (THC) Screen Negative 04/08/21 11:55 Drugs of Abuse Note Disclamer 04/08/21 11:55 Plasma/Serum Alcohol < 0.01 % (0-0.07) 04/08/21 10:17 Blood Type O POSITIVE 04/08/21 13:30 Antibody Screen Negative 04/08/21 13:30 Microbiology: Microbiology 04/08/21 11:55 Urine,Clean Catch Urine Culture - Preliminary 04/08/21 12:38 Peripheral/Venous Blood Culture - Preliminary Culture in Progress 04/08/21 12:38 Peripheral/Venous Blood Culture - Preliminary Culture in Progress Campuzano/IV: Voiding Method Toilet Active Medications - Current Medications Current Medications: Generic Name Dose Route Start Last Admin Trade Name Freq PRN Reason Stop Dose Admin Acetaminophen 650 mg 04/08/21 13:22 Acetaminophen 325 Mg Tab PO Q4H PRN Pain MILD(1-3)/Fever >100.5/GUADALUPE Acetaminophen 650 mg 04/08/21 13:22 Acetaminophen 325 Mg Tab PO Q6H PRN Pain, Mild (1-3) Albuterol 2.5 mg 04/08/21 13:22 Albuterol 2.5 Mg/3 Ml Nebu IH Q4HRT PRN Shortness Of Breath Amlodipine Besylate 10 mg 04/09/21 11:00 Amlodipine 5 Mg Tab PO DAILY LOLITA Ascorbic Acid 500 mg 04/09/21 10:00 04/09/21 10:48 Ascorbic Acid 500 Mg Tab PO 500 mg DAILY LOLITA Administration Ferrous Sulfate 325 mg 04/09/21 10:00 04/09/21 10:48 Ferrous Sulfate 325 Mg Tab PO 325 mg QDAY LOLITA Administration Gabapentin 100 mg 04/08/21 22:00 04/08/21 21:48 Gabapentin 100 Mg Cap PO 100 mg QHS LOLITA Administration Hydromorphone HCl 0.25 mg 04/08/21 13:22 Hydromorphone 1 Mg/1 Ml Inj IV Q4H PRN Pain, Moderate (4-6) Hydromorphone HCl 0.5 mg 04/08/21 13:22 Hydromorphone 1 Mg/1 Ml Inj IV Q23H PRN Pain , Severe (7-10) Hydroxychloroquine Sulfate 200 mg 04/08/21 22:00 04/09/21 10:48 Hydroxychloroquine 200 Mg Tab PO 200 mg BID LOLITA Administration Cefepime HCl 2 gm in 100 mls @ 200 mls/hr 04/08/21 14:00 04/09/21 03:15 Cefepime/Ns 2 Gm/100 Ml IV 04/13/21 02:29 200 mls/hr Q12H LOLITA Administration Protocol Potassium Chloride 10 meq in 100 mls @ 100 mls/hr 04/09/21 11:00 Kcl 10meq/100ml IV 04/09/21 14:59 Q1H LOLITA Levetiracetam 500 mg 04/08/21 22:00 04/09/21 10:48 Levetiracetam 500 Mg Tab PO 500 mg BID LOLITA Administration Meclizine HCl 25 mg 04/08/21 13:25 Meclizine 25 Mg Tab PO TID PRN Vertigo Metoprolol Tartrate 25 mg 04/08/21 22:00 04/09/21 10:48 Metoprolol Tartrate 25 Mg Tab PO 25 mg BID LOLITA Administration Ondansetron HCl 4 mg 04/08/21 13:22 Ondansetron 4 Mg/2 Ml Inj IV Q8H PRN Nausea And Vomiting Oxycodone/Acetaminophen 1 tab 04/08/21 13:22 Oxycodone /Acetaminophen 5-325mg Tab PO Q16H PRN Pain, Moderate (4-6) Pantoprazole Sodium 20 mg 04/09/21 10:00 04/09/21 10:48 Pantoprazole 20 Mg Tab PO 20 mg QDAY LOLITA Administration Potassium Chloride 40 meq 04/09/21 11:00 Potassium Chloride Er 20 Meq Tab PO 04/09/21 15:01 Q4H LOLITA Prednisone 10 mg 04/09/21 10:00 04/09/21 10:48 Prednisone 10 Mg Tab PO 10 mg QDAY LOLITA Administration Sodium Chloride 10 ml 04/08/21 22:00 04/08/21 21:50 Sodium Chloride 0.9% 10 Ml Flush Syringe IV 10 ml BID LOLITA Administration Sodium Chloride 10 ml 04/08/21 13:22 Sodium Chloride 0.9% 10 Ml Flush Syringe IV PRN PRN LINE FLUSH
[2021-04-09] MEDS ORDERED: amLODIPine 5 MG TAB PO ONE (12:00)
[2021-04-09] MEDS: POTASSIUM CHLORIDE ER 20 MEQ TAB PO SCH ×2 (12:23→15:56)
[2021-04-09] MEDS: POTASSIUM CHLORIDE 10 MEQ 10 MEQ/100 ML BAG IV SCH ×4 (14:26→18:26)
--- NOTE | 2021-04-09 18:32 | Electrocardiograph Report ---
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
[2021-04-09] MEDS: GABAPENTIN 100 MG CAP PO SCH (21:27)
[2021-04-09] MEDS: hydrALAZINE 20 MG/1 ML INJ IV PRN (22:23)
--- NOTE | 2021-04-09 23:49 | Consultation ---
History of Present Illness Consult date: 04/09/21 Reason for Consult: Seizure Chief complaint: Seizure History of present illness: 20 yo right-handed female with SLE, recent Canseco's palsy, right foot drop, hypertension, anemia, who presents with witnessed (by mother) seizure activity with noted amnesia/confusion following the event and currently at her baseline. She (and her mother at bedside) confirm no hx of seizure activity. hospital course so far has revealed a possible uti, borderline hyponatermia, hypokalemia, and elevated blood pressure upon arrival. She notes that she was just recently noted with high blood pressure but is not on any BP medications. Of note, she also presents with a right foot drop with an initial onset in 01/2021, which began with a mild swelling arond her right ankle and then some numbness of her toes that was all revlieved when she would walk on it. But then, last month, the foot has progressed to constant numbness/tingling, along with weakness of the right foot. She has been referred to a neurologist for further workup and has an appointment setup for [facility] 2021. She notes she uses a cane for ambulation but does no receive any therapy otherwise. She also notes numbness/tingling of her left fingers recently. Past History Past Medical History: anemia, hypertension, seizures Past Surgical History: No surgical history, Other (Reviewed) Social history: single. denies: smoking, alcohol abuse, prescription drug abuse Family history: hypertension Medications and Allergies Allergies Allergy/AdvReac Type Severity Reaction Status Date / Time No Known Allergies Allergy Unverified 04/08/21 10:06 Home Medications Medication Instructions Recorded Confirmed Last Taken Type Ascorbic Acid [Vitamin C] 500 mg PO DAILY 04/08/21 04/08/21 Unknown History Gabapentin 100 mg PO QHS 04/08/21 04/08/21 Unknown History Iron [Iron 18 MG TAB] 325 mg PO DAILY 04/08/21 04/08/21 Unknown History Meclizine [Antivert] 25 mg PO TID PRN 04/08/21 04/08/21 Unknown History Metoprolol Tartrate 25 mg PO BID 04/08/21 04/08/21 Unknown History Omeprazole 20 mg PO DAILY 04/08/21 04/08/21 Unknown History Ondansetron HCl [Zofran] 4 mg PO Q8HR PRN 04/08/21 04/08/21 Unknown History Plaquenil 200 mg PO BID 04/08/21 04/08/21 Unknown History amLODIPine 2.5 mg PO DAILY 04/08/21 04/08/21 Unknown History predniSONE 10 mg PO DAILY 04/08/21 04/08/21 Unknown History Active Meds: Active Medications Acetaminophen (Acetaminophen 325 Mg Tab) 650 mg PO Q4H PRN PRN Reason: Pain MILD(1-3)/Fever >100.5/GUADALUPE Albuterol (Albuterol 2.5 Mg/3 Ml Nebu) 2.5 mg IH Q4HRT PRN PRN Reason: Shortness Of Breath Amlodipine Besylate (Amlodipine 10 Mg Tab) 10 mg PO DAILY [facility] Ascorbic Acid (Ascorbic Acid 500 Mg Tab) 500 mg PO DAILY [facility] Last Admin: 04/09/21 10:48 Dose: 500 mg Documented by: Ferrous Sulfate (Ferrous Sulfate 325 Mg Tab) 325 mg PO QDAY [facility] Last Admin: 04/09/21 10:48 Dose: 325 mg Documented by: Gabapentin (Gabapentin 100 Mg Cap) 100 mg PO QHS [facility] Last Admin: 04/09/21 21:27 Dose: 100 mg Documented by: Hydralazine HCl (Hydralazine 20 Mg/1 Ml Inj) 10 mg IV Q6HR PRN PRN Reason: Blood Pressure Last Admin: 04/09/21 22:23 Dose: 10 mg Documented by: Hydromorphone HCl (Hydromorphone 1 Mg/1 Ml Inj) 0.25 mg IV Q4H PRN PRN Reason: Pain, Moderate (4-6) Hydromorphone HCl (Hydromorphone 1 Mg/1 Ml Inj) 0.5 mg IV Q23H PRN PRN Reason: Pain , Severe (7-10) Hydroxychloroquine Sulfate (Hydroxychloroquine 200 Mg Tab) 200 mg PO BID [facility] Last Admin: 04/09/21 21:27 Dose: 200 mg Documented by: Levetiracetam (Levetiracetam 500 Mg Tab) 500 mg PO BID [facility] Last Admin: 04/09/21 21:27 Dose: 500 mg Documented by: Meclizine HCl (Meclizine 25 Mg Tab) 25 mg PO TID PRN PRN Reason: Vertigo Metoprolol Tartrate (Metoprolol Tartrate 25 Mg Tab) 25 mg PO BID [facility] Last Admin: 04/09/21 21:27 Dose: 25 mg Documented by: Ondansetron HCl (Ondansetron 4 Mg/2 Ml Inj) 4 mg IV Q8H PRN PRN Reason: Nausea And Vomiting Oxycodone/Acetaminophen (Oxycodone /Acetaminophen 5-325mg Tab) 1 tab PO Q16H PRN PRN Reason: Pain, Moderate (4-6) Pantoprazole Sodium (Pantoprazole 20 Mg Tab) 20 mg PO QDAY [facility] Last Admin: 04/09/21 10:48 Dose: 20 mg Documented by: Prednisone (Prednisone 10 Mg Tab) 10 mg PO QDAY [facility] Last Admin: 04/09/21 10:48 Dose: 10 mg Documented by: Sodium Chloride (Sodium Chloride 0.9% 10 Ml Flush Syringe) 10 ml IV BID [facility] Last Admin: 04/09/21 22:24 Dose: 10 ml Documented by: Sodium Chloride (Sodium Chloride 0.9% 10 Ml Flush Syringe) 10 ml IV PRN PRN PRN Reason: LINE FLUSH Review of Systems All systems: negative (as per HPI;) Physical Examination - Vital Signs Vital Signs: Vital Signs Pulse Resp BP Pulse Ox 122 H 17 142/96 97 04/08/21 09:44 04/08/21 09:44 04/08/21 09:44 04/08/21 09:44 - Physical Exam Narrative exam: Gen: nad, well-nourished; Head: normocephalic; Eyes: no gaze deviation; no ptosis but reduced blink rate at left eye noted; ENT: normal vocalization; CVS: warm and well-perfused; Pulm: no respiratory distress; GI: appears non-distended; Ext: no cyanosis appreciated at distal extremities; Skin: no acute rash appreciated at distal extremities; Heme: no pathologic bruising appreciated at distal extremities; Neuro: alert, oriented to name, age, month, year, surroundings, no dysarthria, no aphasia, CN 2 - PERRL, visual olvera grossly intact, CN 3, 4, 6 - EOMI, CN 5 - facial sensation symmetric to light touch, CN 7 - facial movement decreased on the left (LMN pattern), CN 8 - hearing grossly intact, CN 9, 10 - cough intact, CN 11 - shrug symmetric, CN 12 - tongue midline; Motor - at least 4-/5 at all exts except right foot drop (1/5 right ADF); Sensory - light touch symmetric except at right foot (decreased), Cerebellar - fnf bilaterally intact, Gait - deferred secondary to fall risk; Results - Laboratory Findings CBC and BMP: 04/09/21 09:30 04/09/21 20:42 Abnormal Lab Findings: Abnormal Labs 04/08/21 04/08/21 04/08/21 10:17 10:17 10:17 WBC 19.6 H MCV 74 L MCH 23 L RDW 23.4 H Lymph % (Auto) 5.3 L Lymph # (Auto) 1.1 L [place] # (Auto) 1.3 H Seg Neutrophils % 87.7 H Seg Neuts % (Manual) 86.0 H Lymphocytes % (Manual) 3.0 L Monocytes % (Manual) 8.0 H Seg Neutrophils # 17.6 H Seg Neutrophils # Man 16.9 H Lymphocytes # (Manual) 0.6 L Monocytes # (Manual) 1.6 H Sodium 134 L Potassium 2.5 L* Chloride 90.3 L Carbon Dioxide Creatinine 0.5 L Glucose Alkaline Phosphatase 135 H Urine WBC (Auto) Salicylates < 0.3 L Acetaminophen 04/08/21 04/08/21 04/09/21 10:17 11:55 09:30 WBC MCV 76 L MCH 24 L RDW 24.2 H Lymph % (Auto) Lymph # (Auto) [place] # (Auto) Seg Neutrophils % Seg Neuts % (Manual) Lymphocytes % (Manual) Monocytes % (Manual) Seg Neutrophils # Seg Neutrophils # Man Lymphocytes # (Manual) Monocytes # (Manual) Sodium Potassium Chloride Carbon Dioxide Creatinine Glucose Alkaline Phosphatase Urine WBC (Auto) 10.0 H Salicylates Acetaminophen 9.5 L 04/09/21 09:30 WBC MCV MCH RDW Lymph % (Auto) Lymph # (Auto) [place] # (Auto) Seg Neutrophils % Seg Neuts % (Manual) Lymphocytes % (Manual) Monocytes % (Manual) Seg Neutrophils # Seg Neutrophils # Man Lymphocytes # (Manual) Monocytes # (Manual) Sodium Potassium 2.7 L* Chloride Carbon Dioxide 21 L Creatinine 0.4 L Glucose 125 H Alkaline Phosphatase Urine WBC (Auto) Salicylates Acetaminophen Assessment and Plan 20 yo right-handed female with SLE, recent Canseco's palsy, right foot drop, hypertension, anemia, who presents with a possible seizure event in the setting of a uti, borderline hyponatremia, and a uti. Also, of note, progressive right foot drop and new onset of paresthesias involving the left fingers. Patient denies headche, nausea, emesis, vertigo, neck stiffness or blurred vision. 1. Seizure - in the setting of above risk factors; recommend eeg, mri brain w/ wo contrast; no hx of seizure d/o; d/c AEDs for now unless MR Brain or EEG revea a high risk. 2. Left hand paresthesias - confirm mr cervical spine w/ wo contrast; agreew with neurontinor gabapentin, only if disabling. 3. Right foot drop - agree with [id number] as outpatient juan to confirm myelopathic, radicual, lumbosacral, or peripheral neuropathy as the primary etiology with treatment to follow accordingly. 4. Unsteady gait - pt.ot evaluation/monitoirng. 5. Left Canseco's Palsy - pt notes full workup done in the past and treatment with higher dose of steroids recently. Kenny Mcclain MD Neurology [id number]
--- NOTE | 2021-04-10 07:02 | Progress Note ---
Assessment and Plan Assessment and plan: #New onset seizure #Possible PRES -CT head negative for acute findings -MRI head concerning for PRES -Patient without seizure-like activity since admission, will discontinue Keppra at Neurology recs -UDS positive for benzodiazepine, post administration -EEG machine broken, will need outpatient EEG -if patient symptoms continue to improve will discharge home tomorrow #R foot drop -chronic -PT evaluated -AFO boot at discharge #Leukocytosis -High blood cell count 19.6, improved to 10.3 -UA: + Bacteria; patient denies urinary complaints; urine culture pending -Afebrile, blood cultures collected -Received 1 dose of Rocephin in ED; received 1 dose of cefepime -Low suspicion for infection will discontinue antibiotics #Hypokalemia -resolved -will continue to replete and monitor #Hypertension-improving -Recently started on antihypertensives during hospitalization 2 weeks ago -continue xenegvnwtg25 mg and metoprolol 25 mg twice daily -will continue to monitor #Microcytic anemia -History of anemia secondary to chronic disease -Continue iron supplementation -will transfuse for hemoglobin less than 7 #History of SLE -Continue Plaquenil and prednisone at home doses Disposition Plan: Home Total Time Spent with Patient (Minutes): 20 minutes History Interval history: No acute events overnight. No further seizure activity observed. Patient reports feeling better and ready to go home. No complaints at this time. Hospitalist Physical - Physical exam Narrative exam: GENERAL: Thin young woman. Sitting up in bed, in no acute distress. CHEST/LUNGS: CTAB on room air HEART/CARDIOVASCULAR: Tachycardic. No murmur, rubs or gallops appreciated. ABDOMEN: +BS. NT/ND. SKIN: No rashes noted. EXTREMITIES: No cyanosis, clubbing or edema. PSYCH: Cooperative. - Constitutional Vitals: Temp Pulse Resp BP Pulse Ox 98.1 F 107 H 20 143/94 100 04/10/21 05:23 04/10/21 05:23 04/10/21 05:23 04/10/21 05:23 04/10/21 05:23 General appearance: Present: mild distress Results - Labs CBC & Chem 7: 04/09/21 09:30 04/09/21 20:42 Labs: Laboratory Last Values WBC 10.3 K/mm3 (4.5-11.0) 04/09/21 09:30 RBC 4.29 M/mm3 (3.65-5.03) 04/09/21 09:30 Hgb 10.2 gm/dl (10.1-14.3) 04/09/21 09:30 Hct 32.5 % (30.3-42.9) 04/09/21 09:30 MCV 76 fl (79-97) L 04/09/21 09:30 MCH 24 pg (28-32) L 04/09/21 09:30 MCHC 31 % (30-34) 04/09/21 09:30 RDW 24.2 % (13.2-15.2) H 04/09/21 09:30 Plt Count 196 K/mm3 (140-440) 04/09/21 09:30 Lymph % (Auto) 5.3 % (13.4-35.0) L 04/08/21 10:17 [place] % (Auto) 6.5 % (0.0-7.3) 04/08/21 10:17 Eos % (Auto) 0.3 % (0.0-4.3) 04/08/21 10:17 Baso % (Auto) 0.2 % (0.0-1.8) 04/08/21 10:17 Lymph # (Auto) 1.1 K/mm3 (1.2-5.4) L 04/08/21 10:17 [place] # (Auto) 1.3 K/mm3 (0.0-0.8) H 04/08/21 10:17 Eos # (Auto) 0.1 K/mm3 (0.0-0.4) 04/08/21 10:17 Baso # (Auto) 0.0 K/mm3 (0.0-0.1) 04/08/21 10:17 Add Manual Diff Complete 04/08/21 10:17 Total Counted 100 04/08/21 10:17 Seg Neutrophils % 87.7 % (40.0-70.0) H 04/08/21 10:17 Seg Neuts % (Manual) 86.0 % (40.0-70.0) H 04/08/21 10:17 Band Neutrophils % 3.0 % 04/08/21 10:17 Lymphocytes % (Manual) 3.0 % (13.4-35.0) L 04/08/21 10:17 Monocytes % (Manual) 8.0 % (0.0-7.3) H 04/08/21 10:17 Nucleated RBC % Not Reportable 04/08/21 10:17 Seg Neutrophils # 17.6 K/mm3 (1.8-7.7) H 04/08/21 10:17 Seg Neutrophils # Man 16.9 K/mm3 (1.8-7.7) H 04/08/21 10:17 Band Neutrophils # 0.6 K/mm3 04/08/21 10:17 Lymphocytes # (Manual) 0.6 K/mm3 (1.2-5.4) L 04/08/21 10:17 Abs React Lymphs (Man) 0.0 K/mm3 04/08/21 10:17 Monocytes # (Manual) 1.6 K/mm3 (0.0-0.8) H 04/08/21 10:17 Eosinophils # (Manual) 0.0 K/mm3 (0.0-0.4) 04/08/21 10:17 Basophils # (Manual) 0.0 K/mm3 (0.0-0.1) 04/08/21 10:17 Metamyelocytes # 0.0 K/mm3 04/08/21 10:17 Myelocytes # 0.0 K/mm3 04/08/21 10:17 Promyelocytes # 0.0 K/mm3 04/08/21 10:17 Blast Cells # 0.0 K/mm3 04/08/21 10:17 WBC Morphology Not Reportable 04/08/21 10:17 Hypersegmented Neuts Not Reportable 04/08/21 10:17 Hyposegmented Neuts Not Reportable 04/08/21 10:17 Hypogranular Neuts Not Reportable 04/08/21 10:17 Smudge Cells Not Reportable 04/08/21 10:17 Toxic Granulation Not Reportable 04/08/21 10:17 Toxic Vacuolation Not Reportable 04/08/21 10:17 Dohle Bodies Not Reportable 04/08/21 10:17 Pelger-Huet Anomaly Not Reportable 04/08/21 10:17 Jessa Rods Not Reportable 04/08/21 10:17 Platelet Estimate Consistent w auto 04/08/21 10:17 Clumped Platelets Not Reportable 04/08/21 10:17 Plt Clumps, EDTA Not Reportable 04/08/21 10:17 Large Platelets Not Reportable 04/08/21 10:17 Giant Platelets Not Reportable 04/08/21 10:17 Platelet Satelliting Not Reportable 04/08/21 10:17 Plt Morphology Comment Not Reportable 04/08/21 10:17 RBC Morphology Not Reportable 04/08/21 10:17 Dimorphic RBCs Not Reportable 04/08/21 10:17 Polychromasia Not Reportable 04/08/21 10:17 Hypochromasia 1+ 04/08/21 10:17 Poikilocytosis Not Reportable 04/08/21 10:17 Anisocytosis 2+ 04/08/21 10:17 Microcytosis 1+ 04/08/21 10:17 Macrocytosis Not Reportable 04/08/21 10:17 Spherocytes Not Reportable 04/08/21 10:17 Pappenheimer Bodies Not Reportable 04/08/21 10:17 Sickle Cells Not Reportable 04/08/21 10:17 Target Cells Not Reportable 04/08/21 10:17 Tear Drop Cells Not Reportable 04/08/21 10:17 Ovalocytes Not Reportable 04/08/21 10:17 Helmet Cells Not Reportable 04/08/21 10:17 [place] Bodies Not Reportable 04/08/21 10:17 [place] Rings Not Reportable 04/08/21 10:17 Tran Cells Not Reportable 04/08/21 10:17 Bite Cells Not Reportable 04/08/21 10:17 Crenated Cell Not Reportable 04/08/21 10:17 Elliptocytes Not Reportable 04/08/21 10:17 Acanthocytes (Spur) Not Reportable 04/08/21 10:17 Rouleaux Not Reportable 04/08/21 10:17 Hemoglobin C Crystals Not Reportable 04/08/21 10:17 Schistocytes Not Reportable 04/08/21 10:17 Malaria parasites Not Reportable 04/08/21 10:17 Dante Bodies Not Reportable 04/08/21 10:17 Hem Pathologist Commnt No 04/08/21 10:17 PT 13.3 Sec. (12.2-14.9) 04/08/21 10:17 INR 0.91 (0.87-1.13) 04/08/21 10:17 Sodium 137 mmol/L (137-145) 04/09/21 09:30 Potassium 4.1 mmol/L (3.6-5.0) D 04/09/21 20:42 Chloride 99.2 mmol/L (98-107) 04/09/21 09:30 Carbon Dioxide 21 mmol/L (22-30) L 04/09/21 09:30 Anion Gap 20 mmol/L 04/09/21 09:30 BUN 10 mg/dL (7-17) 04/09/21 09:30 Creatinine 0.4 mg/dL (0.6-1.2) L 04/09/21 09:30 Estimated GFR > 60 ml/min 04/09/21 09:30 BUN/Creatinine Ratio 25 % 04/09/21 09:30 Glucose 125 mg/dL (65-100) H 04/09/21 09:30 Lactic Acid 1.00 mmol/L (0.7-2.0) 04/09/21 05:43 Calcium 8.6 mg/dL (8.4-10.2) 04/09/21 09:30 Magnesium 2.20 mg/dL (1.7-2.3) 04/08/21 10:47 Total Bilirubin 0.70 mg/dL (0.1-1.2) 04/08/21 10:17 AST 26 units/L (5-40) 04/08/21 10:17 ALT 38 units/L (7-56) 04/08/21 10:17 Alkaline Phosphatase 135 units/L (35-129) H 04/08/21 10:17 Total Protein 7.5 g/dL (6.3-8.2) 04/08/21 10:17 Albumin 3.9 g/dL (3.9-5) 04/08/21 10:17 Albumin/Globulin Ratio 1.1 % 04/08/21 10:17 TSH 1.900 mlU/mL (0.270-4.200) 04/08/21 10:17 HCG, Quant < 2 mIU/mL (0-4) 04/08/21 10:17 Urine Color Straw (Yellow) 04/08/21 11:55 Urine Turbidity Clear (Clear) 04/08/21 11:55 Urine pH 7.0 (5.0-7.0) 11/22/21 11:55 Ur Specific Cable 1.005 (1.003-1.030) 04/08/21 11:55 Urine Protein 30 mg/dl mg/dL (Negative) 04/08/21 11:55 Urine Glucose (UA) Neg mg/dL (Negative) 04/08/21 11:55 Urine Ketones Neg mg/dL (Negative) 04/08/21 11:55 Urine Blood Sm (Negative) 04/08/21 11:55 Urine Nitrite Neg (Negative) 04/08/21 11:55 Urine Bilirubin Neg (Negative) 04/08/21 11:55 Urine Urobilinogen < 2.0 mg/dL (<2.0) 04/08/21 11:55 Ur Leukocyte Esterase Mod (Negative) 04/08/21 11:55 Urine WBC (Auto) 10.0 /HPF (0.0-6.0) H 04/08/21 11:55 Urine RBC (Auto) 3.0 /HPF (0.0-6.0) 04/08/21 11:55 U Epithel Cells (Auto) 3.0 /HPF (0-13.0) 04/08/21 11:55 Urine Bacteria (Auto) 1+ /HPF (Negative) 04/08/21 11:55 Nasal Screen MRSA (PCR) Negative (Negative) 04/09/21 16:25 Salicylates < 0.3 mg/dL (2.8-20.0) L 04/08/21 10:17 Urine Opiates Screen Negative 04/08/21 11:55 Urine Methadone Screen Negative 04/08/21 11:55 Acetaminophen 9.5 ug/mL (10.0-30.0) L 04/08/21 10:17 Ur Barbiturates Screen Negative 04/08/21 11:55 Ur Phencyclidine Scrn Negative 04/08/21 11:55 Ur Amphetamines Screen Negative 04/08/21 11:55 U Benzodiazepines Scrn Positive 04/08/21 11:55 Urine Cocaine Screen Negative 04/08/21 11:55 U Marijuana (THC) Screen Negative 04/08/21 11:55 Drugs of Abuse Note Disclamer 04/08/21 11:55 Plasma/Serum Alcohol < 0.01 % (0-0.07) 04/08/21 10:17 Blood Type O POSITIVE 04/08/21 13:30 Antibody Screen Negative 04/08/21 13:30 Microbiology: Microbiology 04/08/21 12:38 Peripheral/Venous Blood Culture - Preliminary NO GROWTH AFTER 24 HOURS 04/08/21 12:38 Peripheral/Venous Blood Culture - Preliminary NO GROWTH AFTER 24 HOURS 04/08/21 11:55 Urine,Clean Catch Urine Culture - Preliminary [place]/IV: Voiding Method Toilet Active Medications - Current Medications Current Medications: Generic Name Dose Route Start Last Admin Trade Name Freq PRN Reason Stop Dose Admin Acetaminophen 650 mg 04/08/21 13:22 Acetaminophen 325 Mg Tab PO Q4H PRN Pain MILD(1-3)/Fever >100.5/GUADALUPE Albuterol 2.5 mg 04/08/21 13:22 Albuterol 2.5 Mg/3 Ml Nebu IH Q4HRT PRN Shortness Of Breath Amlodipine Besylate 10 mg 04/10/21 10:00 Amlodipine 10 Mg Tab PO DAILY [facility] Ascorbic Acid 500 mg 04/09/21 10:00 04/09/21 10:48 Ascorbic Acid 500 Mg Tab PO 500 mg DAILY LOLITA Administration Ferrous Sulfate 325 mg 04/09/21 10:00 04/09/21 10:48 Ferrous Sulfate 325 Mg Tab PO 325 mg QDAY LOLITA Administration Gabapentin 100 mg 04/08/21 22:00 04/09/21 21:27 Gabapentin 100 Mg Cap PO 100 mg QHS LOLITA Administration Hydralazine HCl 10 mg 04/09/21 21:33 04/09/21 22:23 Hydralazine 20 Mg/1 Ml Inj IV 10 mg Q6HR PRN Administration Blood Pressure Hydromorphone HCl 0.25 mg 04/08/21 13:22 Hydromorphone 1 Mg/1 Ml Inj IV Q4H PRN Pain, Moderate (4-6) Hydromorphone HCl 0.5 mg 04/08/21 13:22 Hydromorphone 1 Mg/1 Ml Inj IV Q23H PRN Pain , Severe (7-10) Hydroxychloroquine Sulfate 200 mg 04/08/21 22:00 04/09/21 21:27 Hydroxychloroquine 200 Mg Tab PO 200 mg BID LOLITA Administration Levetiracetam 500 mg 04/08/21 22:00 04/09/21 21:27 Levetiracetam 500 Mg Tab PO 500 mg BID LOL[facility] Administration Meclizine HCl 25 mg 04/08/21 13:25 Meclizine 25 Mg Tab PO TID PRN Vertigo Metoprolol Tartrate 25 mg 04/08/21 22:00 04/09/21 21:27 Metoprolol Tartrate 25 Mg Tab PO 25 mg BID LOLITA Administration Ondansetron HCl 4 mg 04/08/21 13:22 Ondansetron 4 Mg/2 Ml Inj IV Q8H PRN Nausea And Vomiting Oxycodone/Acetaminophen 1 tab 04/08/21 13:22 Oxycodone /Acetaminophen 5-325mg Tab PO Q16H PRN Pain, Moderate (4-6) Pantoprazole Sodium 20 mg 04/09/21 10:00 04/09/21 10:48 Pantoprazole 20 Mg Tab PO 20 mg QDAY [facility] Administration Prednisone 10 mg 04/09/21 10:00 04/09/21 10:48 Prednisone 10 Mg Tab PO 10 mg QDAY [facility] Administration Sodium Chloride 10 ml 04/08/21 22:00 04/09/21 22:24 Sodium Chloride 0.9% 10 Ml Flush Syringe IV 10 ml BID LOLITA Administration Sodium Chloride 10 ml 04/08/21 13:22 Sodium Chloride 0.9% 10 Ml Flush Syringe IV PRN PRN LINE FLUSH
[2021-04-10] MEDS: amLODIPine 10 MG TAB PO SCH (09:14)
[2021-04-10] MEDS: FERROUS SULFATE 325 MG TAB PO SCH (09:14)
[2021-04-10] MEDS: PANTOPRAZOLE 20 MG TAB PO SCH (09:14)
[2021-04-10] MEDS: levETIRAcetam 500 MG TAB PO SCH (09:14)
[2021-04-10] MEDS: HYDROXYCHLOROQUINE 200 MG TAB PO SCH ×2 (09:14→21:10)
[2021-04-10] MEDS: ASCORBIC ACID 500 MG TAB PO SCH (09:14)
[2021-04-10] MEDS: predniSONE 10 MG TAB PO SCH (09:14)
[2021-04-10] MEDS: METOPROLOL TARTRATE 25 MG TAB PO SCH ×3 (09:14→20:22)
--- NOTE | 2021-04-10 11:32 | Magnetic Resonance Report ---
MRI CERVICAL SPINE WITHOUT AND WITH CONTRAST INDICATION / CLINICAL INFORMATION: progressive myelopathy, lt arm weakness.numbness. TECHNIQUE: Multisequence, multiplanar images of the cervical spine were obtained. Contrast dose report: Clairscan: 13 mL administered intravenously. COMPARISON: None available. FINDINGS: POSTOPERATIVE CHANGES: none CRANIOCERVICAL JUNCTION:No significant abnormality. ALIGNMENT: Loss of the normal cervical lordosis is noted. This may be an artifact of patient position ing. No additional abnormalities of alignment are identified. VERTEBRAE:Normal bone marrow signal is observed throughout the cervical region. CERVICAL INTERVERTEBRAL DISCS:Disc height and signal intensity are normally maintained. VISUALIZED SPINAL CORD: No intrinsic cord lesions are identified. Is no indication of cord compressio n. [id number] ANALYSIS: C2-3: No significant disc abnormality, spinal canal stenosis, or neural foraminal stenosis. C3-4: Minimal right paracentral disc protrusion flattens the thecal sac slightly. No additional abnor mality. C4-5: No significant disc abnormality, spinal canal stenosis, or neural foraminal stenosis. C5-6: No significant disc abnormality, spinal canal stenosis, or neural foraminal stenosis. C6-7: No significant disc abnormality, spinal canal stenosis, or neural foraminal stenosis. C7-T1: No significant disc abnormality, spinal canal stenosis, or neural foraminal stenosis. PARASPINAL SOFT TISSUES: No significant abnormality. IMPRESSION: 1. No focal disc herniation, spinal canal stenosis or nerve root compression. 2. No intrinsic cord lesions or evidence of cord compression. Signer Name: Brandan Velez MD Signed: 04/10/2021 11:27 AM Workstation Name: [id number]
--- NOTE | 2021-04-10 11:52 | Magnetic Resonance Report ---
MRI BRAIN WITHOUT AND WITH CONTRAST INDICATION / CLINICAL INFORMATION: Seizure Protocol, lt arm weakness.numbness. TECHNIQUE: Multiplanar, multisequence MR images of the brain were obtained. Contrast: Clairscan: 13 ml, administered intravenously. COMPARISON: Head CT 04/08/2021 FINDINGS: BRAIN / INTRACRANIAL CONTENTS: Multifocal subcortical white matter lesions are identified in both cerebral hemispheres. In addition deep white matter hyperintensities present in the occipital lobes bilaterally. Imaging findings sugge st diagnosis of posterior reversible encephalopathy syndrome. Is there history of hypertension Atypic al demyelinating disease could be considered in the differential diagnosis that this is unlikely. Ventricles and cortical sulci are normal in size and configuration. There is no mass effect. No evide nce of intracranial hemorrhage or extra-axial fluid collection is seen. Diffusion weighted scans are negative. There is no indication of acute ischemic injury. Hyperintense foci are demonstrated in the middle cerebellar peduncles and at the ponto medullary junc tion. And cerebellum have an unremarkable appearance. MIDLINE STRUCTURES:No abnormalities are seen to involve the pituitary gland. Pineal region has an unr emarkable appearance. CRANIOCERVICAL JUNCTION: No abnormalities are identified at the craniocervical junction. VASCULAR FLOW-VOIDS: Normal flow-voids are present within the major intracranial vessels. ORBITS: The orbits have an unremarkable appearance. SINUSES / MASTOIDS: There is no indication of inflammatory disease in the paranasal sinuses or mastoi d air cells. Following the administration of intravenous contrast enhancement of normal vascular structures is dem onstrated. No areas of abnormal contrast enhancement are identified. IMPRESSION: 1. Multifocal subcortical white matter hyperintensities as described above. In addition there is whit e matter hyperintensity in a bilateral occipital lobe distribution, in the middle cerebellar peduncle is and in the kale. PRES is considered the most likely diagnosis. Is there history of hypertension, preeclampsia or eclampsia Atypical demyelinating disease could be considered in the differential roger gnosis but is considered much less likely. Signer Name: Brandan Velez MD Signed: 04/10/2021 11:47 AM Workstation Name: [id number]
[2021-04-10] MEDS: hydrALAZINE 20 MG/1 ML INJ IV PRN (13:40)
[2021-04-10] MEDS: GABAPENTIN 100 MG CAP PO SCH (21:10)
[2021-04-11] MEDS: hydrALAZINE 20 MG/1 ML INJ IV PRN (05:39)
[2021-04-11 05:49] LABS: Hematocrit 31.2 % (30.3-42.9); Hemoglobin 9.5 gm/dl (10.1-14.3); Mean Corpuscular HGB Conc 30 % (30-34); Mean Corpuscular Volume 76 fl (79-97); Platelet Count 186 K/mm3 (140-440)
[2021-04-11 05:50] LABS: Red Cell Distribution Width 24.4 % (13.2-15.2)
[2021-04-11 06:13] LABS: Blood Urea Nitrogen 16 mg/dL (7-17); Calcium 8.8 mg/dL (8.4-10.2); Hemolysis Index 1
[2021-04-11 06:24] LABS: BUN/Creatinine Ratio 53
[2021-04-11] MEDS ORDERED: POTASSIUM CHLORIDE ER 20 MEQ TAB PO NR (08:30)
[2021-04-11] MEDS: PANTOPRAZOLE 20 MG TAB PO SCH (09:01)
[2021-04-11] MEDS: predniSONE 10 MG TAB PO SCH (09:01)
[2021-04-11] MEDS: ASCORBIC ACID 500 MG TAB PO SCH (09:01)
[2021-04-11] MEDS: amLODIPine 10 MG TAB PO SCH (09:01)
[2021-04-11] MEDS: METOPROLOL TARTRATE 25 MG TAB PO SCH (09:04)
[2021-04-11] MEDS: FERROUS SULFATE 325 MG TAB PO SCH (09:04)
[2021-04-11] MEDS: HYDROXYCHLOROQUINE 200 MG TAB PO SCH (09:04)
--- NOTE | 2021-04-11 11:20 | Discharge Summary ---
Providers - Providers Date of Admission: 04/08/21 13:22 Date of discharge: 04/11/21 Attending physician: CAROLINA BARNHART MD 04/09/21 07:15 Consult to Physician [CONS] Routine Comment: Consulting Provider: JESUS ALBERTO PRADO Physician Instructions: Reason For Exam: seizure 04/09/21 23:41 Physical Therapy Evaluation and Treat [CONS] Routine Comment: Reason For Exam: Right foot weakness; unsteady gait; Primary care physician: [employer] Hospitalization Condition: Good Disposition: 30 STILL A PATIENT Exam - Constitutional Vitals: Temp Pulse Resp BP Pulse Ox 97.8 F 132 H 20 160/116 99 04/11/21 04:25 04/11/21 09:01 04/11/21 04:25 04/11/21 09:01 04/11/21 04:25 Plan Care Plan Goals: Follow-up with PCP. Start taking the updated dose of the blood pressure medications. Follow-up with neurology outpatient in 2 weeks. You will need an outpatient EEG for seizures and EMG for your nerves. You will also need a repeat MRI. Follow up with: EDER CEDEÑO MD [Primary Care Provider] - 3-5 Days Prescriptions: amLODIPine 10 mg PO DAILY 30 Days #30 tablet Ferrous Sulfate [Feosol 325 MG tab] 325 mg PO QDAY 30 Days #30 tablet Metoprolol [Lopressor TAB] 25 mg PO TID 30 Days #90 tablet
[2021-04-11 15:01] VITALS: BP 100/64
== END 2021-04-11 13:07 | disposition home or self-care (01) | DRG 872 ==
LOC: ED 09:43 → 3A 13:22
PROVIDERS: ADMIT Internal Medicine; ATTEND Student in an Organized Health Care Education/Training Program
DX: A41.9 Sepsis, unspecified organism (principal); N39.0 Urinary tract infection, site not specified; R56.9 Unspecified convulsions; E87.6 Hypokalemia; M32.9 Systemic lupus erythematosus, unspecified; I10 Essential (primary) hypertension; D50.9 Iron deficiency anemia, unspecified; Z20.822 Contact with and (suspected) exposure to COVID-19
CPT/HCPCS: 36415; 70450; 70553; 71045; 72156; 80048; 80053; 80307; 80320; 81001; 82140; 82306; 82525; 82607; 82747; 83735; 84132; 84134; 84425; 84443; 84702; 85007; 85025; 85027; 85610; 86850; 86900; 86901; 87040; 87086; 93005; G0378; A9575; G0480; J0360; J0692; J0696; J1953; J3480; J7040; J7512